=== PATIENT | male | born 1965 | race Two or more races ===

== ENCOUNTER → 2022-09-24 | Outpatient (CLI) | payer OTHER, BC ==
[2022-09-24 09:27] LABS: Basophils # (auto) 0 10 ^3/uL (0-0.2); Basophils % (auto) 0.4 % (0.0-2.0); Eosinophils # (auto) 0.2 10 ^3/uL (0-0.8); Eosinophils % (auto) 2.2 % (0.0-7.0); Hematocrit 43.8 % (41.0-53.0); Hemoglobin 15.1 g/dL (13.5-17.5); Lymphocytes # (auto) 1.9 10 ^3/uL (0.4-5.4); Lymphocytes % (auto) 27.2 % (10.0-50.0); Mean Corpuscular Hgb Conc. 34.4 g/dL (32.0-36.0); Mean Corpuscular Volume 87.1 fL (80.0-100.0); Monocytes # (auto) 0.6 10 ^3/uL (0-1.3); Monocytes % (auto) 8.5 % (0.0-12.0); Neutrophils # (auto) 4.4 10 ^3/uL (1.6-8.6); Neutrophils % (auto) 61.7 % (37.0-80.0); Nucleated Red Blood Cells % 0.1 %; Red Blood Cells 5.03 10^6/uL (4.5-5.90); White Blood Cell 7.1 10^3/uL (4.4-10.8)
[2022-09-24 09:58] LABS: Urine Bacteria NONE SEEN /hpf (None Seen); Urine Blood Negative /uL (Negative); Urine Specific Gravity 1.018 (1.001-1.035); Urine WBC 1 /hpf (0 - 3)
[2022-09-24 10:20] LABS: Potassium 4.1 mmol/L (3.5-5.1)
[2022-09-24 10:30] LABS: Free T4 (Free Thyroxine) 1.06 ng/dL (0.89-1.76)
[2022-09-24 10:32] LABS: Prostate Specific Antigen 1.38 ng/mL (0.0-4.0)
[2022-09-24 10:47] LABS: Albumin 4.4 g/dL (3.4-5.0); BUN/Creatinine Ratio 20.2 (10.0-20.0); Bilirubin, Total 0.8 mg/dL (0.2-1.0); Calcium 9.2 mg/dL (8.5-10.1); Total Protein 7.3 g/dL (6.4-8.2)
== END | disposition home or self-care (01) ==
LOC: LAB 08:51
PROVIDERS: ATTEND Internal Medicine
DX: Z13.1 Encounter for screening for diabetes mellitus (principal); Z29.9 Encounter for prophylactic measures, unspecified; I10 Essential (primary) hypertension; E66.09 Other obesity due to excess calories
CPT/HCPCS: 36415; 80053; 80061; 81001; 83036; 84153; 84403; 84439; 84443; 85025

== ENCOUNTER → 2023-04-05 | Outpatient (CLI) | payer BC | END | disposition home or self-care (01) | LOC: LAB 13:39 | PROVIDERS: ATTEND Urology | DX: E29.1 Testicular hypofunction (principal) | CPT/HCPCS: 36415; 84403 ==

== ENCOUNTER → 2023-05-14 | Outpatient (CLI) | payer BC ==
[2023-05-14 10:53] LABS: Basophils # (auto) 0 10 ^3/uL (0-0.2); Basophils % (auto) 0.3 % (0.0-2.0); Eosinophils # (auto) 0.2 10 ^3/uL (0-0.8); Eosinophils % (auto) 2.1 % (0.0-7.0); Hematocrit 48.2 % (41.0-53.0); Hemoglobin 16.3 g/dL (13.5-17.5); Lymphocytes # (auto) 1.8 10 ^3/uL (0.4-5.4); Lymphocytes % (auto) 20.9 % (10.0-50.0); Mean Corpuscular Hemoglobin 28.3 pg (28.0-32.0); Mean Corpuscular Hgb Conc. 33.8 g/dL (32.0-36.0); Mean Corpuscular Volume 83.7 fL (80.0-100.0); Monocytes # (auto) 0.8 10 ^3/uL (0-1.3); Monocytes % (auto) 9.6 % (0.0-12.0); Neutrophils # (auto) 5.9 10 ^3/uL (1.6-8.6); Neutrophils % (auto) 67.1 % (37.0-80.0); Nucleated Red Blood Cells % 0.6 %; Red Blood Cells 5.76 10^6/uL (4.5-5.90); Red Cell Distribution Width 13.9 % (11.8-14.3); White Blood Cell 8.7 10^3/uL (4.4-10.8)
== END | disposition home or self-care (01) ==
LOC: LAB 10:43
PROVIDERS: ATTEND Urology
DX: E29.1 Testicular hypofunction (principal)
CPT/HCPCS: 36415; 84153; 84403; 85025

== ENCOUNTER → 2023-06-10 | Outpatient (CLI) | payer BC ==
[2023-06-10 08:41] LABS: Basophils # (auto) 0 10 ^3/uL (0-0.2); Basophils % (auto) 0.5 % (0.0-2.0); Eosinophils # (auto) 0.2 10 ^3/uL (0-0.8); Eosinophils % (auto) 2.1 % (0.0-7.0); Hematocrit 48.8 % (41.0-53.0); Hemoglobin 16.5 g/dL (13.5-17.5); Lymphocytes # (auto) 1.6 10 ^3/uL (0.4-5.4); Lymphocytes % (auto) 21.6 % (10.0-50.0); Mean Corpuscular Hgb Conc. 33.8 g/dL (32.0-36.0); Mean Corpuscular Volume 82.8 fL (80.0-100.0); Monocytes # (auto) 0.7 10 ^3/uL (0-1.3); Monocytes % (auto) 9.6 % (0.0-12.0); Neutrophils % (auto) 66.2 % (37.0-80.0); Red Cell Distribution Width 14.1 % (11.8-14.3); White Blood Cell 7.6 10^3/uL (4.4-10.8)
[2023-06-10 09:26] LABS: Alanine Aminotransferase 60 U/L (7-40); Albumin 4.5 g/dL (3.2-4.8); Alkaline Phosphatase 81 U/L (46-116); Anion Gap 5 (5-15); Aspartate Aminotransferase 36 U/L (13-40); BUN/Creatinine Ratio 10.2 (10.0-20.0); Blood Urea Nitrogen 12 mg/dL (9-23); Calcium 9.5 mg/dL (8.5-10.1); Carbon Dioxide 27 mmol/L (20-30); Chloride 107 mmol/L (98-107); Cholesterol 195 mg/dL (< 200); Glucose 123 mg/dL (74-106); HDL Cholesterol 33 mg/dL (40-59); LDL Cholesterol 127 mg/dL (< 100); Potassium 4.2 mmol/L (3.5-5.1); Sodium 139 mmol/L (136-145); Triglycerides 233 mg/dL (< 150)
[2023-06-10 09:35] LABS: Bilirubin, Total 0.7 mg/dL (0.2-1.0)
[2023-06-10 10:33] LABS: Uric Acid 5.6 mg/dL (3.7-9.2)
== END | disposition home or self-care (01) ==
LOC: LAB 08:29
PROVIDERS: ATTEND Nurse Practitioner Gerontology
DX: I10 Essential (primary) hypertension (principal); E78.2 Mixed hyperlipidemia; E66.8 Other obesity; R74.01 Elevation of levels of liver transaminase levels
CPT/HCPCS: 36415; 80053; 80061; 84550; 85025

== ENCOUNTER → 2023-08-06 | Outpatient (CLI) | payer BC ==
[2023-08-06 15:15] LABS: Chloride 106 mmol/L (98-107); Sodium 140 mmol/L (136-145)
[2023-08-06 15:16] LABS: Anion Gap 2 (5-15); Calcium 9.4 mg/dL (8.5-10.1); Carbon Dioxide 32 mmol/L (20-30)
[2023-08-06 15:21] LABS: BUN/Creatinine Ratio 11.8 (10.0-20.0); Blood Urea Nitrogen 15 mg/dL (9-23); Glucose 102 mg/dL (74-106)
== END | disposition home or self-care (01) ==
LOC: LAB 14:42
PROVIDERS: ATTEND Urology
DX: E29.1 Testicular hypofunction (principal)
CPT/HCPCS: 36415; 80048

== ENCOUNTER → 2023-09-16 | Outpatient (CLI) | payer BC ==
[2023-09-16 08:32] LABS: Basophils # (auto) 0 10 ^3/uL (0-0.2); Basophils % (auto) 0.7 % (0.0-2.0); Eosinophils # (auto) 0.2 10 ^3/uL (0-0.8); Eosinophils % (auto) 2.6 % (0.0-7.0); Hematocrit 47.8 % (41.0-53.0); Hemoglobin 16.4 g/dL (13.5-17.5); Lymphocytes # (auto) 1.9 10 ^3/uL (0.4-5.4); Lymphocytes % (auto) 26.1 % (10.0-50.0); Mean Corpuscular Hemoglobin 29.2 pg (28.0-32.0); Mean Corpuscular Hgb Conc. 34.3 g/dL (32.0-36.0); Mean Corpuscular Volume 85.1 fL (80.0-100.0); Monocytes # (auto) 0.6 10 ^3/uL (0-1.3); Monocytes % (auto) 9.1 % (0.0-12.0); Neutrophils # (auto) 4.4 10 ^3/uL (1.6-8.6); Neutrophils % (auto) 61.5 % (37.0-80.0); Nucleated Red Blood Cells % 0.1 %; Red Blood Cells 5.61 10^6/uL (4.5-5.90); Red Cell Distribution Width 14.6 % (11.8-14.3); White Blood Cell 7.2 10^3/uL (4.4-10.8)
[2023-09-16 09:26] LABS: Alanine Aminotransferase 50 U/L (7-40); Albumin 4.5 g/dL (3.2-4.8); Alkaline Phosphatase 86 U/L (46-116); Anion Gap 6 (5-15); Aspartate Aminotransferase 34 U/L (13-40); BUN/Creatinine Ratio 16.2 (10.0-20.0); Blood Urea Nitrogen 19 mg/dL (9-23); Calcium 9.5 mg/dL (8.5-10.1); Carbon Dioxide 27 mmol/L (20-30); Chloride 105 mmol/L (98-107); Glucose 134 mg/dL (74-106); Sodium 138 mmol/L (136-145); Triglycerides 550 mg/dL (< 150)
[2023-09-16 09:27] LABS: Bilirubin, Total 0.5 mg/dL (0.2-1.0); Cholesterol 236 mg/dL (< 200); HDL Cholesterol 35 mg/dL (40-59); Total Protein 7.1 g/dL (5.7-8.2)
[2023-09-16 11:49] LABS: Uric Acid 5.3 mg/dL (3.7-9.2)
[2023-09-16 12:53] LABS: T3 Total 1.53 ng/mL (0.60-1.81)
[2023-09-16 12:54] LABS: Free T3 4.12 pg/mL (2.3-4.2)
[2023-09-16 12:56] LABS: Free T4 (Free Thyroxine) 0.93 ng/dL (0.89-1.76)
== END | disposition home or self-care (01) ==
LOC: LAB 08:15
PROVIDERS: ATTEND Nurse Practitioner Gerontology
DX: Z00.01 Encounter for general adult medical examination with abnormal findings (principal); I10 Essential (primary) hypertension; E78.2 Mixed hyperlipidemia; R73.9 Hyperglycemia, unspecified; R74.01 Elevation of levels of liver transaminase levels
CPT/HCPCS: 36415; 80053; 80061; 83036; 84439; 84443; 84480; 84481; 84550; 85025

== ENCOUNTER → 2023-10-22 | Outpatient (CLI) | payer BC ==
[2023-10-22 11:50] LABS: Chloride 106 mmol/L (98-107); Potassium 3.9 mmol/L (3.5-5.1); Sodium 139 mmol/L (136-145)
[2023-10-22 11:51] LABS: Anion Gap 6 (5-15); Calcium 9.2 mg/dL (8.5-10.1); Carbon Dioxide 27 mmol/L (20-30)
[2023-10-22 11:56] LABS: BUN/Creatinine Ratio 10.4 (10.0-20.0); Blood Urea Nitrogen 11 mg/dL (9-23); Glucose 128 mg/dL (74-106)
== END | disposition home or self-care (01) ==
LOC: LAB 11:19
PROVIDERS: ATTEND Urology
DX: N40.0 Benign prostatic hyperplasia without lower urinary tract symptoms (principal)
CPT/HCPCS: 36415; 80048; 84153; 84403

== ENCOUNTER → 2023-12-13 | Outpatient (CLI) | payer BC ==
[2023-12-13 09:01] LABS: Alanine Aminotransferase 41 U/L (7-40); Albumin 4.4 g/dL (3.2-4.8); Alkaline Phosphatase 77 U/L (46-116); Anion Gap 6 (5-15); Aspartate Aminotransferase 22 U/L (13-40); BUN/Creatinine Ratio 16.4 (10.0-20.0); Bilirubin, Total 0.8 mg/dL (0.2-1.0); Blood Urea Nitrogen 18 mg/dL (9-23); Calcium 9.4 mg/dL (8.7-10.4); Carbon Dioxide 28 mmol/L (20-30); Chloride 105 mmol/L (98-107); Cholesterol 209 mg/dL (< 200); Glucose 125 mg/dL (74-106); HDL Cholesterol 42 mg/dL (40-59); LDL Cholesterol 144 mg/dL (< 100); Potassium 3.9 mmol/L (3.5-5.1); Sodium 139 mmol/L (136-145); Triglycerides 200 mg/dL (< 150)
[2023-12-13 09:02] LABS: Total Protein 6.8 g/dL (5.7-8.2)
== END | disposition home or self-care (01) ==
LOC: LAB 08:04
PROVIDERS: ATTEND Internal Medicine
DX: E78.2 Mixed hyperlipidemia (principal); K76.0 Fatty (change of) liver, not elsewhere classified; R94.4 Abnormal results of kidney function studies; R73.9 Hyperglycemia, unspecified; N52.9 Male erectile dysfunction, unspecified
CPT/HCPCS: 36415; 80053; 80061

== ENCOUNTER 2024-04-02 10:32 | Inpatient (IN) | payer BC ==
[~2024-04-02] VITALS: Ht 182.9 cm; Wt 118.0 kg
--- NOTE | 2024-04-02 10:59 | ED.PDOC ---
Musculoskeletal HPI Comments HPI: Poor Historian. 58-year-old male sent from Dr. Macario Cool's office orthopedic surgeon to be admitted to the hospital for pre up clearance for surgery tomorrow on his left knee it patient had a left knee injury a month ago in [place] from a fall. Pain is worse with flexion of the left knee. The patient is neurovascularly intact in the affected extremity. Pedal pulses palpable. Sensory and motor are present. Patient is able to ambulate independently. VITALS; TEMP; 98.5 F HEART RATE; 87 02 SAT; 96 RR; 18 BP; 142/97 PMH: gerd, gout PSH: collar bone surgery SOCIAL HISTORY: ENDORSES tobacco use, ENDORSES etoh use, DENIES drug use MEDS; aspirin, omeprazole, allopurinol, ibuprofen ALLERGIES; Allergies to Vicodin but not [place] REVIEW OF SYSTEMS: CONSTITUTIONAL: Denies acute: fever, diaphoresis, chills, generalized weakness. HEAD: Denies acute: headache, photophobia Eyes: Denies acute: Double vision, vision loss, eye pain, eye discharge. EARS: Denies acute: tinnitus, hearing loss, ear discharge, ear pain, THROAT: Denies acute: sore throat, swelling, difficulty swallowing , pain with swallowing, change in voice. NECK: Denies acute: neck pain, neck swelling, stiff neck. HEART: Denies acute : chest pain, palpitations, LUNGS: Denies acute: SOB, wheezing, cough, hemoptysis ABDOMEN: Denies acute: abdominal pain, Nausea, Vomiting, diarrhea, melena , hematemesis, hematochezia SKIN: Denies acute: rash, redness, lesions, itchiness. EXTREMITIES: Denies acute: calf pain, numbness, tingling, weakness, Denies acute: Low back pain. Neuro: Denies acute: focal neurological deficit, motor or sensory focal neurological deficit, tremors, seizure like activity, confusion, dizziness, change in mental status, loss of bowel or bladder function, cauda equina like symptoms. : Denies acute: dysuria, hematuria, flank pain, increase in urinary frequency. PSYCH: Denies acute: hallucination, suicidal ideation, homicidal ideation. PHYSICAL EXAM: General: no acute distress, awake and alert. Head: normocephalic, atraumatic. Neck: supple, trachea is midline, no swelling. Throat: Normal phonation. Eyes:, no erythema, no purulent discharge, no proptosis, no icterus. Heart: regular rate, regular rhythm, no significant murmur appreciated. Lungs: no apparent respiratory distress, Able to speak in full sentences. No wheezing, no rhonchi, no crackles. No stridors Clear to auscultation bilaterally. Abdomen: non tender to palpation, non distended, soft, no guarding, no rebound, + bowel sounds. Neuro: Awake, Alert, oriented to name, self, situation, follows commands GCS=15. Speech is normal. Skin: no petechia, no purpura, no cyanosis, non-pale, not jaundice. Lower extremities: --no - Pitting edema no deformity,, no calf TTP. Patient is neurovascularly intact in the affected extremity. Pedal pulses palpable. Motor and sensory are present. Left knee pain and decreased range of motion of the joint due to pain. Mild focal knee swelling. Noted left knee swelling. No erythema Makes eye contact. moves all four extremities. Face: no apparent facial droop. Ambulating in the ED independently. Chief Complaint: Lower Extremity Time Seen by MD: 10:57 Reviewed Notes: Nurses Notes, Medications, Allergies Allergies: Coded Allergies: No Known Drug Allergy (Verified Allergy, Unknown, 04/02/24) Information Source: Patient Mode of Arrival: Ambulatory Brought in by: self Location: Left Past Medical History PAST MEDICAL HISTORY: GERD, Gout Surgical History (Other): collar bone surgery Family History Family History: Reviewed,noncontributory to illness Social History Smoker: Cigarettes Alcohol: Occasionally Drugs: Denies Drug Use Lives In: Home Was a procedure done? Was a procedure done?: No Differential Diagnosis EXT Differential Diagnosis: Cellulitis, CHF, Deep Vein Thrombosis, Compartment Syndrome, Fracture, Sprain, Dislocation, Laceration, Gout, DJD, Contusion, Stra in, Rheumatoid, Septic, Neurovascular injury, Arthritis, Bursitis X-Ray, Labs, Meds, VS Vital Signs Date Time Temp Pulse Resp B/P (MAP) Pulse Ox O2 Delivery O2 Flow Rate FiO2 04/02/24 11:42 76 04/02/24 10:58 98.5 87 18 142/97 (112) 96 Lab Test 04/02/24 11:13 Range/Units White Blood Count 7.6 4.4-10.8 10^3/uL Red Blood Count 5.25 4.5-5.90 10^6/uL Hemoglobin 16.1 13.5-17.5 g/dL Hematocrit 46.2 41.0-53.0 % Mean Corpuscular Volume 88.0 80.0-100.0 fL Mean Corpuscular Hemoglobin 30.7 28.0-32.0 pg Mean Corpuscular Hemoglobin Concent 34.9 32.0-36.0 g/dL Red Cell Distribution Width 14.4 H 11.8-14.3 % Platelet Count 285 140-450 10^3/uL Mean Platelet Volume 8.0 6.9-10.8 fL Neutrophils (%) (Auto) 69.1 37.0-80.0 % Lymphocytes (%) (Auto) 21.0 10.0-50.0 % Monocytes (%) (Auto) 7.3 0.0-12.0 % Eosinophils (%) (Auto) 2.2 0.0-7.0 % Basophils (%) (Auto) 0.4 0.0-2.0 % Neutrophils # (Auto) 5.3 1.6-8.6 10 ^3/uL Lymphocytes # (Auto) 1.6 0.4-5.4 10 ^3/uL Monocytes # (Auto) 0.6 0-1.3 10 ^3/uL Eosinophils # (Auto) 0.2 0-0.8 10 ^3/uL Basophils # (Auto) 0 0-0.2 10 ^3/uL Nucleated Red Blood Cells 0.3 % D-Dimer, Quantitative 1.76 H 0.0-0.49 mg/L FEU Sodium Level 139 136-145 mmol/L Potassium Level 4.2 3.5-5.1 mmol/L Chloride Level 107 98-107 mmol/L Carbon Dioxide Level 25 20-31 mmol/L Anion Gap 7 5-15 Blood Urea Nitrogen 12 9-23 mg/dL Creatinine 1.25 0.700-1.30 mg/dL Glomerular Filtration Rate Calc 67 >90 mL/min BUN/Creatinine Ratio 9.6 L 10.0-20.0 Serum Glucose 188 H 74-106 mg/dL Calcium Level 9.7 8.7-10.4 mg/dL Total Bilirubin 0.4 0.2-1.0 mg/dL Aspartate Amino Transferase (AST) 33 13-40 U/L Alanine Aminotransferase (ALT) 57 H 7-40 U/L Alkaline Phosphatase 81 46-116 U/L Troponin I High Sensitivity 21 </=54 ng/L Total Protein 7.0 5.7-8.2 g/dL Albumin 4.6 3.2-4.8 g/dL [place] [id number] Ph: [phone] DIAGNOSTIC IMAGING Diagnostic Imaging Report : [id number] Signed PATIENT: CALE UNGER ACCT: [id number] UNIT: [id number] : 1965 LOC: ER ROOM / BED: / AGE / SEX: 58 / M ADM STATUS: REG ER SERVICE 1059 ORDERING PHYSICIAN: NEVIN PEARSON DO PROCEDURE(s): CXRP - CHEST PORTABLE REASON: pre op ORDER NUMBER(s): [id number], ACCESSION NUMBER(s): [id number] EXAM: XY CHEST PORTABLE Indication: pain Technique: Single frontal view of the chest was obtained Comparison: None FINDINGS: Lines and Tubes: None Lungs: No focal consolidation. Pleura: No effusion. No pneumothorax. Cardiomediastinal contours: Unremarkable Bones: No acute osseous abnormality. IMPRESSION: No acute cardiopulmonary disease. ATED BY: DEJA DUNNE MD DICTATED DATE/TIME: 04/02/24 1145 SIGNED BY: DEJA DUNNE MD SIGNED DATE/TIME: 04/02/24 1145 CC: [place] [id number] Ph: [phone] DIAGNOSTIC IMAGING Diagnostic Imaging Report : [id number] Signed PATIENT: CALE UNGER ACCT: [id number] UNIT: [id number] : 1965 LOC: ER ROOM / BED: / AGE / SEX: 58 / M ADM STATUS: REG ER SERVICE 1141 ORDERING PHYSICIAN: NEVIN PEARSON DO PROCEDURE(s): LKNE3 - L KNEE 3V XRAY REASON: pain swelling injury ORDER NUMBER(s): [id number], ACCESSION NUMBER(s): [id number] CLINICAL INFORMATION: 58 years old, Male; pain swelling injury. TECHNIQUE: 3 views of the left knee were obtained. COMPARISON: None FINDINGS: No acute fracture or dislocation. Moderate joint space narrowing of the medial compartment and qyey-xs-aqdoygna joint space narrowing in the lateral and patellofemoral compartments. No focal soft tissue swelling. Small joint effusion. IMPRESSION: 1. No evidence of acute bony abnormality. 2. Nonacute findings as detailed above. ATED BY: ROMAN ARRIAGA DO DICTATED DATE/TIME: 04/02/241209 SIGNED BY: ROMAN ARRIAGA DO SIGNED DATE/TIME: 04/02/241209 CC: Time of 1ST Reevaluation: 15:38 Reevaluation 1ST: Unchanged Patient Education/Counseling: Diagnosis, Treatment Family Education/Counseling: No Family Present Comments Patient presented with the above HPI.---left knee pain---workup was initiated. patient was found with the above mentioned diagnosis. Patient denies any acute pain. Patient is here for preop clearance for surgery tomorrow. Patient ED course and VS have been stabilized. Patient has been reassessed in the ED and remained in a stable condition. Pertinent incidental findings were discussed with the patient and/or family. Patient/family voices understanding and is agreeable with plan. Patient has been observed in the ED adequate length of time to insure improvem ent/stability. patient was admitted to the medicine team for further evaluation and treatment of their presentation. Case discussed with orthopedic surgeon Dr. Mcguire on the phone who also came to the ER to evaluate the patient. Patient is awaiting surgery tomorrow. All the reports of any imaging studies that were ordered by myself were reviewed by myself. Departure 1 Departure Time of Disposition: 11:04 Impression: Primary Impression: Knee injury Additional Impression: Elevated troponin Disposition: 09 ADMITTED INPATIENT Admit to: Tele Condition: Guarded Discharged With: Self Critical Care Note Critical Care Time?: No I personally scribed for NEVIN PEARSON DO ([email or web address]) on 04/02/24 at 10:59. Electronically submitted by Bren Izaguirre (MARIA L). I personally scribed for NEVIN PEARSON DO ([facility]) on 04/02/24 at 11:10. Electronically submitted by Bren Izaguirre ([facility]). I personally scribed for NEVIN PEARSON DO ([facility]) on 04/02/24 at 11:59. Electronically submitted by [facility]irre ([facility] I personally scribed for NEVIN PEARSON DO ([facility]) on 04/02/24 at 12:25. Electronically submitted by Bren [facility]aguirre ([facility] NEVIN PEARSON DO Apr 02, 2024 10:59
[2024-04-02 11:40] LABS: Basophils # (auto) 0 10 ^3/uL (0-0.2); Basophils % (auto) 0.4 % (0.0-2.0); Eosinophils # (auto) 0.2 10 ^3/uL (0-0.8); Eosinophils % (auto) 2.2 % (0.0-7.0); Hematocrit 46.2 % (41.0-53.0); Hemoglobin 16.1 g/dL (13.5-17.5); Lymphocytes # (auto) 1.6 10 ^3/uL (0.4-5.4); Mean Corpuscular Hemoglobin 30.7 pg (28.0-32.0); Mean Corpuscular Hgb Conc. 34.9 g/dL (32.0-36.0); Monocytes # (auto) 0.6 10 ^3/uL (0-1.3); Monocytes % (auto) 7.3 % (0.0-12.0); Neutrophils # (auto) 5.3 10 ^3/uL (1.6-8.6); Neutrophils % (auto) 69.1 % (37.0-80.0); Nucleated Red Blood Cells % 0.3 %; Platelet Count (auto) 285 10^3/uL (140-450); Red Blood Cells 5.25 10^6/uL (4.5-5.90); Red Cell Distribution Width 14.4 % (11.8-14.3); White Blood Cell 7.6 10^3/uL (4.4-10.8)
--- NOTE | 2024-04-02 11:47 | DVH ---
EXAM: XY CHEST PORTABLE Indication: pain Technique: Single frontal view of the chest was obtained Comparison: None FINDINGS: Lines and Tubes: None Lungs: No focal consolidation. Pleura: No effusion. No pneumothorax. Cardiomediastinal contours: Unremarkable Bones: No acute osseous abnormality. IMPRESSION: No acute cardiopulmonary disease.
[2024-04-02 12:01] LABS: Alanine Aminotransferase 57 U/L (7-40); Albumin 4.6 g/dL (3.2-4.8); Alkaline Phosphatase 81 U/L (46-116); Anion Gap 7 (5-15); Aspartate Aminotransferase 33 U/L (13-40); BUN/Creatinine Ratio 9.6 (10.0-20.0); Blood Urea Nitrogen 12 mg/dL (9-23); Calcium 9.7 mg/dL (8.7-10.4); Carbon Dioxide 25 mmol/L (20-31); Chloride 107 mmol/L (98-107); Glucose 188 mg/dL (74-106); Potassium 4.2 mmol/L (3.5-5.1); Sodium 139 mmol/L (136-145)
[2024-04-02 12:02] LABS: Bilirubin, Total 0.4 mg/dL (0.2-1.0)
--- NOTE | 2024-04-02 12:12 | DVH ---
CLINICAL INFORMATION: 58 years old, Male; pain swelling injury. TECHNIQUE: 3 views of the left knee were obtained. COMPARISON: None FINDINGS: No acute fracture or dislocation. Moderate joint space narrowing of the medial compartment and aycz-tr-cemsnlcl joint space narrowing in the lateral and patellofemoral compartments. No focal s oft tissue swelling. Small joint effusion. IMPRESSION: 1. No evidence of acute bony abnormality. 2. Nonacute findings as detailed above.
--- NOTE | 2024-04-02 14:00 | DVH ---
Bilateral lower extremity venous duplex Clinical History: abnormal d dimer Comparison: None Technique: Duplex Doppler evaluation of the deep venous systems of both lower extremities from the common femora l veins to the popliteal veins including color Doppler and spectral/pulsed waveform analysis was perf ormed. Findings: RIGHT SIDE: The common femoral vein demonstrates appropriate compressibility and waveform variability. There is compressibility/patency of the great saphenous vein at the proximal thigh. The femoral vein demonstrates appropriate compressibility and waveform variability. The deep femoral vein demonstrates appropriate compressibility and waveform variability. The popliteal vein demonstrates appropriate compressibility and waveform variability. There is normal compressibility at the tibioperoneal trunk. LEFT SIDE: The common femoral vein demonstrates appropriate compressibility and waveform variability. There is compressibility/patency of the great saphenous vein at the proximal thigh. The femoral vein demonstrates appropriate compressibility and waveform variability. The deep femoral vein demonstrates appropriate compressibility and waveform variability. The popliteal vein demonstrates appropriate compressibility and waveform variability. There is normal compressibility at the tibioperoneal trunk. Impression: 1. No right or left femoropopliteal venous thrombosis. HS:Y
[2024-04-02] MEDS ORDERED: ACETAMINOPHEN 325 MG TAB PO PRN ×2 (16:45)
[2024-04-02] MEDS ORDERED: DEXTROSE (50%) 50ML SYRG IV PRN (16:45)
[2024-04-02] MEDS ORDERED: ONDANSETRON HCL 4 MG/2 ML VIAL IV PRN (16:45)
[2024-04-02] MEDS ORDERED: ALLO300T2 PO (16:47)
[2024-04-02] MEDS: InsuLIN REG 1unit/0.01ml Soln (100units/ml) SC SCH (17:00)
--- NOTE | 2024-04-02 17:08 | DVHHP2 ---
History of Present Illness Reason for Visit: Left knee pain/preop History of Present Illness 58-year-old male sent from Dr. Siu's office orthopedic surgeon to be admitted to the hospital for surgery tomorrow his left knee. Patient had left knee injury a month ago in [place] after tripping off a curb. Pain is worse with flexion of left knee. Patient is neurovascularly intact in the affected extremity, pedal pulses palpable patient is able to ambulate independently. Patient denies chest pain, headache, dizziness, diaphoresis, shortness of breath, abdominal pain, no nausea, vomiting, fever, or chills endorsed by the patient. Patient was admitted for further evaluation medical management. Past Medical History GERD, gout Past Surgical History Collar bone surgery Family History Reviewed noncontributory to the management of this case Smoke: <1 pack per day (Cigars once a week) ALCOHOL: occassional Drugs: None Lives: with Family Review of Systems Constitutional: No: Fever, Chills, Sweats, Weakness, Malaise, Other Eyes: No: Pain, Vision change, Conjunctivae inflammation, Eyelid inflammation, Other, Redness ENT: No: Ear pain, Ear discharge, Nose pain, Nose discharge, Nose congestion, Mouth pain, Mouth swelling, Throat pain, Throat swelling, Other Respiratory: No: Cough, Dry, Shortness of breath, SOB with excertion, Wheezing, Hemoptysis, Pleuritic Pain, Sputum, Wheezing, Other Cardiovascular: No: Chest Pain, Palpitations, Orthopnea, Paroxysmal Noc. Dyspnea, Edema, Lt Headedness, Other Gastrointestinal: No: Nausea, Vomiting, Abdominal Pain, Diarrhea, Constipation, Melena, Hematochezia, Other Genitourinary: No Dysuria, No Frequency, No Incontinence, No Hematuria, No Retention, No Other Musculoskeletal: leg pain (Left knee pain); No: other, neck pain, shoulder pain, arm pain, back pain, hand pain, foot pain Skin: No: Rash, Lesions, Jaundice, Bruising, Other Neurological: No: Weakness, Numbness, Incoordination, Change in speech, Confusion, Seizures, Other Allergies: Coded Allergies: Acetaminophen (Verified Allergy, Mild, Rash, 04/02/24) Hydrocodone (Verified Allergy, Mild, Rash, 04/02/24) No Known Drug Allergy (Verified Allergy, Unknown, 04/02/24) Medications Current Medications Medications Dose Ordered Sig/Judah Route Start Time Stop Time Status Last Admin Dose Admin Ondansetron HCl 4 mg Q4HP PRN IV 04/02/24 16:45 Diagnostic Test (Pha) 1 strip ACHS 04/02/24 17:00 Insulin Human Regular ACHS SC 04/02/24 17:00 Dextrose 50 ml UD PRN IV 04/02/24 16:45 Ketorolac Tromethamine 30 mg Q6HPRN PRN IV 04/02/24 16:45 04/07/24 16:44 Acetaminophen 650 mg Q4HP PRN PO 04/02/24 16:45 Hold Allopurinol 300 mg DAILY PO 04/03/24 10:00 UNV Pantoprazole Sodium 40 mg DAILY@0600 PO 04/03/24 06:00 UNV Exam Vital Signs Vital Signs Date Time Temp Pulse Resp B/P (MAP) Pulse Ox O2 Delivery O2 Flow Rate FiO2 04/02/24 11:42 76 04/02/24 10:58 98.5 18 142/97 (112) 96 General Appearance: Alert, Oriented X3, Cooperative, No acute distress HEENT: Atraumatic, PERRLA, Mucous membr. moist/pink Respiratory: Clear to auscultation, Normal air movement Cardiovascular: Regular rate, Normal S1, Normal S2, No murmurs Abdominal: Normal bowel sounds, Soft, No tenderness, No hepatospenomegaly Extremities: No clubbing, No cyanosis, No edema, Normal pulses, No tenderness/swelling Skin: No rashes, No breakdown, No significant lesion Neuro: Normal gait, Normal speech, Strength at 5/5 X4 ext, Normal tone, Sensation intact, Cranial nerves 3-12 NL, Reflexes 2+ Psych/Mental Status: Mental status NL, Mood NL Labs/Xrays Labs, imaging and ED notes reviewed Labs Test 04/02/24 11:13 Range/Units White Blood Count 7.6 4.4-10.8 10^3/uL Red Blood Count 5.25 4.5-5.90 10^6/uL Hemoglobin 16.1 13.5-17.5 g/dL Hematocrit 46.2 41.0-53.0 % Mean Corpuscular Volume 88.0 80.0-100.0 fL Mean Corpuscular Hemoglobin 30.7 28.0-32.0 pg Mean Corpuscular Hemoglobin Concent 34.9 32.0-36.0 g/dL Red Cell Distribution Width 14.4 H 11.8-14.3 % Platelet Count 285 140-450 10^3/uL Mean Platelet Volume 8.0 6.9-10.8 fL Neutrophils (%) (Auto) 69.1 37.0-80.0 % Lymphocytes (%) (Auto) 21.0 10.0-50.0 % Monocytes (%) (Auto) 7.3 0.0-12.0 % Eosinophils (%) (Auto) 2.2 0.0-7.0 % Basophils (%) (Auto) 0.4 0.0-2.0 % Neutrophils # (Auto) 5.3 1.6-8.6 10 ^3/uL Lymphocytes # (Auto) 1.6 0.4-5.4 10 ^3/uL Monocytes # (Auto) 0.6 0-1.3 10 ^3/uL Eosinophils # (Auto) 0.2 0-0.8 10 ^3/uL Basophils # (Auto) 0 0-0.2 10 ^3/uL Nucleated Red Blood Cells 0.3 % D-Dimer, Quantitative 1.76 H 0.0-0.49 mg/L FEU Sodium Level 139 136-145 mmol/L Potassium Level 4.2 3.5-5.1 mmol/L Chloride Level 107 98-107 mmol/L Carbon Dioxide Level 25 20-31 mmol/L Anion Gap 7 5-15 Blood Urea Nitrogen 12 9-23 mg/dL Creatinine 1.25 0.700-1.30 mg/dL Glomerular Filtration Rate Calc 67 >90 mL/min BUN/Creatinine Ratio 9.6 L 10.0-20.0 Serum Glucose 188 H 74-106 mg/dL Calcium Level 9.7 8.7-10.4 mg/dL Total Bilirubin 0.4 0.2-1.0 mg/dL Aspartate Amino Transferase (AST) 33 13-40 U/L Alanine Aminotransferase (ALT) 57 H 7-40 U/L Alkaline Phosphatase 81 46-116 U/L Troponin I High Sensitivity 21 </=54 ng/L Total Protein 7.0 5.7-8.2 g/dL Albumin 4.6 3.2-4.8 g/dL Assessment/Plan Assessment/Plan Left knee pain, secondary to osteoarthritis Admit to medical/surgical Patient is stable Imaging done Per ER notes patient is pending possible left knee surgery ER spoke with Dr. Siu orthopedic surgeon History of gout Continue home Allopurinol History of GERD Continue home Protonix Hyperglycemia HGBA1c pending Accu-Cheks a.c. HS Mild insulin sliding scale FEN/PPX GI prophylaxis-Protonix VTE prophylaxis not indicated Regular diet- NPO after midnight to prepare for surgery Plan discussed with: Patient My Orders Orders - DANA FIELDS Procedure Category Date Status Time Admit ADMIT 04/02/24 Transmitted 16:33 Code Status CODE 04/02/24 Transmitted 16:33 Vital Signs ANDRES 04/02/24 In Process 16:33 Review Orders With ANDRES 04/02/24 In Process Adm. 16:33 Up Ad Morena ANDRES 04/02/24 In Process 16:33 Regular Diet DIET 04/02/24 Transmitted Dinner Notify Md Of Changes ANDRES 04/02/24 In Process From Base 16:33 Advance Directive ANDRES 04/02/24 In Process 16:33 Basic Metabolic Panel LAB 04/03/24 Verified 04:00 Complete Blood Count LAB 04/03/24 Verified 04:00 Patient Condition ORDERS 04/02/24 Transmitted 16:33 Allergies ANDRES 04/02/24 In Process 16:33 Ondansetron Hcl PHA 04/02/24 In Process (Zofran) 16:45 Hemoglobin A1c LAB 04/02/24 In Process 16:33 Glucose Blood PHA 04/02/24 In Process (Accu-Chek Comfort 17:00 Insulin R (Human) PHA 04/02/24 In Process (Insulin R) 17:00 Dextrose 50% Syringe PHA 04/02/24 In Process 16:45 Ketorolac Injection PHA 04/02/24 In Process (Toradol Injection) 16:45 Acetaminophen Tablet PHA 04/02/24 In Process (Tylenol Tablet) 16:45 Allopurinol Tablet PHA 04/03/24 Logged (Zyloprim Tablet) 10:00 Pantoprazole Tablet PHA 04/03/24 Logged (Protonix Tablet) 06:00 Date of Service: Apr 02, 2024 Billing Provider: DANA FIELDS Common Visit Codes: [id number] INP/OBS CARE (HIGH) DANA FIELDS Apr 02, 2024 17:08
[2024-04-02] MEDS: ACCU-CHEK COMFORT CURVE STRIP VI SCH (17:28)
--- NOTE | 2024-04-02 19:05 | ECG ---
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
[2024-04-03] VITALS (8 sets, daily range): BP systolic 132–153; BP diastolic 65–96; PULSE 48–99; RESP 16–20; TEMP 98–98.6; O2SAT 90–96
[2024-04-03 04:40] LABS: Basophils # (auto) 0 10 ^3/uL (0-0.2); Basophils % (auto) 0.4 % (0.0-2.0); Eosinophils # (auto) 0.3 10 ^3/uL (0-0.8); Eosinophils % (auto) 2.8 % (0.0-7.0); Hematocrit 47.1 % (41.0-53.0); Hemoglobin 16.1 g/dL (13.5-17.5); Lymphocytes # (auto) 2.2 10 ^3/uL (0.4-5.4); Lymphocytes % (auto) 23.8 % (10.0-50.0); Mean Corpuscular Hemoglobin 30.1 pg (28.0-32.0); Mean Corpuscular Hgb Conc. 34.1 g/dL (32.0-36.0); Mean Corpuscular Volume 88.1 fL (80.0-100.0); Monocytes # (auto) 0.7 10 ^3/uL (0-1.3); Monocytes % (auto) 7.1 % (0.0-12.0); Neutrophils # (auto) 6.2 10 ^3/uL (1.6-8.6); Neutrophils % (auto) 65.9 % (37.0-80.0); Nucleated Red Blood Cells % 0.1 %; Platelet Count (auto) 292 10^3/uL (140-450); Red Blood Cells 5.35 10^6/uL (4.5-5.90); Red Cell Distribution Width 14.4 % (11.8-14.3); White Blood Cell 9.4 10^3/uL (4.4-10.8)
[2024-04-03 04:54] LABS: Chloride 107 mmol/L (98-107); Sodium 139 mmol/L (136-145)
[2024-04-03 04:55] LABS: Anion Gap 8 (5-15); Calcium 9.6 mg/dL (8.7-10.4); Carbon Dioxide 24 mmol/L (20-31)
[2024-04-03 05:00] LABS: BUN/Creatinine Ratio 13.3 (10.0-20.0); Blood Urea Nitrogen 14 mg/dL (9-23); Glucose 115 mg/dL (74-106)
[2024-04-03] MEDS: PANTOPRAZOLE 40 MG TAB PO SCH (06:05)
[2024-04-03] MEDS: ALLOPURINOL 100 MG TAB PO SCH (09:19)
[2024-04-03] MEDS ORDERED: fentaNYL CITRATE 100 MCG/2 ML VL ONE ×2 (11:01→12:07)
[2024-04-03] MEDS ORDERED: PROPOFOL 10 MG/ML 20 ML IV ONE (11:01)
[2024-04-03] MEDS: ceFAZolin 1GM/50ML 50 ML IV ONE (11:37)
--- NOTE | 2024-04-03 11:42 | DVHHP2 ---
History Allergies: Coded Allergies: Acetaminophen (Verified Allergy, Mild, Rash, 04/02/24) Hydrocodone (Verified Allergy, Mild, Rash, 04/02/24) No Known Drug Allergy (Verified Allergy, Unknown, 04/02/24) Chief Complaint: Left quadriceps tendon rupture, inability to extend knee Present Illness(Onset/Duration Fall 4 weeks ago with pain anterior suprapatellar area, presentted to [facility] ER, referred to ortho clinic Pt presented yesterday, 4 wks s/p injury with MRI left knee showing complete rupture of quadriceps tendon, and my reading showed some maceration and 5 cm retraction pt admitted to hospital from clinic for surgery today Past Surgical History ORIF left clavicle 2006 without complication Medications metopralol, gout meds, ASA, testosterone, meds for IBS Physical Exam Skin intact Heart RRR neg mrg Abdomen soft ND NT Extremities Left LE, 30 deg extensiuon lag, palpable defect distal quadriceps, NVI Vital Signs Vital Signs Date Time Temp Pulse Resp B/P (MAP) Pulse Ox O2 Delivery O2 Flow Rate FiO2 04/03/24 10:34 98.3 54 18 153/75 (101) 95 98.3 04/02/24 23:12 Room Air* 0 21 Impressions/Description Left quadriceps tendon tear, 4wks ago Plan 1) pre op admit, clear internal med 2) surgery for repair of left quadriceps tendon. Risks and benefits of surgery explained to include ; , ME, CVA, infection , recurrent tear, pain, poor ROM Pt understood risks and benefits and signed consent with full understanding TYREL MICHAEL MD Apr 03, 2024 11:42
[2024-04-03] MEDS ORDERED: ONDANSETRON HCL 4 MG/2 ML VIAL ONE (11:45)
[2024-04-03] MEDS ORDERED: DexAMETHasone SOD PHOS 10MG/1ML VIAL INJ ONE (11:45)
[2024-04-03] MEDS ORDERED: MEPERIDINE HCL (25 MG/ML) 1ML VIAL ONE (11:47)
[2024-04-03] MEDS: ROPIVACAINE 0.5% (5MG/ML) 20ML AMPULE IJ ONE (11:59)
[2024-04-03] MEDS ORDERED: SODIUM CHLORIDE LOCK 10 ML ONE (12:20)
[2024-04-03] MEDS ORDERED: MEPERIDINE HCL (25 MG/ML) 1ML VIAL IV PRN (13:15)
[2024-04-03] MEDS: ONDANSETRON HCL 4 MG/2 ML VIAL IV ONE (13:15)
[2024-04-03] MEDS ORDERED: ACETAMINOPHEN IV 1000 MG/100ML (10MG/ML) IV PRN (13:15)
--- NOTE | 2024-04-03 13:28 | DVHOP2 ---
Operative Report - 2 Report Details Date: 04/03/24 Preop Diagnosis: Left quadriceps tendon tear Postop Diagnosis: same Surgeon: Tyrel Michael MD Front Elevator Operator: none Anesthesiologist: Dr Rios Anesthesia: General Implant: none Consent: The patient was informed of the risks and benefits of the procedure. These include but are not limited to complications of anesthesia, postoperative infection, incomplete relief of symptoms, recurrence of symptoms, damage to blood vessels, nerves and tendons, deep venous thrombosis, pulmonary embolism and possible need for repeat surgery in the future. Complications: none Estimated Blood Loss: 10 cc Fluids: 500 cc crystalloid Findings: above Indications for Surgery: full thickness tear of quadriceps tendon Name of Procedure Performed Repair of left quadriceps tendon tear Procedure Details Procedure Details: Patient brought in the operating room and given Ancef 1 g IV piggyback preoperatively sterile prep and drape left leg a time-out performed confirmation left side correct side repair of left quadriceps tendon tear correct procedure after review of the operative consent history and physical my initials on left thigh no exsanguination or tourniquet during the case longitudinal incision made from inferior pole of patella proximally to mid thigh sharp dissection through skin down to de sutures and suturing to tissue that was still present in the p roximally attached with the proximal pole of the patella ep fascia deep fascia then divided longitudinally exposing the quadriceps tendon tear quadriceps tendon was then repaired using Mersilene tape of specifically a 4 mm Mersilene tape using locking Jaz stitch no drill holes necessary and patella as there was tendon tissue still attached to the superior pole patella for repair after repair using 4 separate worsening tape sutures of the knee the knee was brought through on flexion to 3045 showing no gaping of the tear site fascia was then repaired over the deep tendon a using 0 Vicryl suture then subcutaneous 2-0 Vicryl suture then skin kate fluffs ABD Jose Martin wrap a knee immobilizer no drainage specimens complications. Specimen: none Condition Stable Disposition Still a Patient TYREL MICHAEL MD Apr 03, 2024 13:28
[2024-04-03] MEDS ORDERED: D5W/SOD CHL 0.45%/KCL 20MEQ 1,000 ML IV SCH (13:30)
[2024-04-03] MEDS: HYDROmorphone HCL 2 MG/ML VL/or syr ONE (13:41)
[2024-04-03] MEDS: HYDROmorphone HCL 2 MG/ML VL/or syr IV PRN (13:45)
[2024-04-03] MEDS: ceFAZolin 1GM/50ML 50 ML IV SCH (14:00)
--- NOTE | 2024-04-03 14:34 | DVHPN2 ---
Subjective POD1 Left Quad Repair Changes from previous H/P or p: No Changes Eyes: No Pain, No Vision change, No Conjunctivae inflammation, No Eyelid inflammation, No Other, No Redness ENT: No Ear pain, No Ear discharge, No Nose pain, No Nose discharge, No Nose congestion, No Mouth pain, No Mouth swelling, No Throat pain, No Throat swelling, No Other Cardiovascular: No Chest Pain, No Palpitations, No Orthopnea, No Paroxysmal Noc. Dyspnea, No Edema, No Lt Headedness, No Other Respiratory: No Cough, No Dry, No Shortness of breath, No SOB with excertion, No Wheezing, No Hemoptysis, No Pleuritic Pain, No Sputum, No Other Gastrointestinal: No Nausea, No Vomiting, No Abdominal Pain, No Diarrhea, No Constipation, No Melena, No Hematochezia, No Other Genitourinary: No Dysuria, No Frequency, No Incontinence, No Hematuria, No Retention, No Other Musculoskeletal: No other, No neck pain, No shoulder pain, No arm pain, No back pain, No hand pain; leg pain (Left knee pain); No foot pain Skin: No Rash, No Lesions, No Jaundice, No Bruising, No Other Objective Vitals Vital Signs Date Time Temp Pulse Resp B/P (MAP) Pulse Ox O2 Delivery O2 Flow Rate FiO2 04/03/24 10:34 98.3 54 18 153/75 (101) 95 98.3 04/02/24 23:12 Room Air* 0 21 Exam Gen: in bed NAD Cvs: N S1/S2, RRR Resp: BLAE Abd: Soft, NT, BS+ Clinical Team Lead: AAO x 4 Ext: Left Knee Dressing Medications Current Medications Medications Dose Ordered Sig/Judah Route Start Time Stop Time Status Last Admin Dose Admin Ondansetron HCl 4 mg Q4HP PRN IV 04/02/24 16:45 Diagnostic Test (Pha) 1 strip ACHS 04/02/24 17:00 04/03/24 06:06 1 STRIP Insulin Human Regular ACHS SC 04/02/24 17:00 Dextrose 50 ml UD PRN IV 04/02/24 16:45 Ketorolac Tromethamine 30 mg Q6HPRN PRN IV 04/02/24 16:45 04/07/24 16:44 Acetaminophen 650 mg Q4HP PRN PO 04/02/24 16:45 Hold Allopurinol 300 mg DAILY PO 04/03/24 10:00 04/03/24 09:19 300 MG Pantoprazole Sodium 40 mg DAILY@0600 PO 04/03/24 06:00 04/03/24 06:05 40 MG Acetaminophen 1,000 mg [id number] PRN IV 04/03/24 13:15 04/03/24 13:16 UNV Hydromorphone HCl 0.5 mg Q10M PRN IV 04/03/24 13:15 04/03/24 13:56 UNV Potassium Chloride/Dextrose/ Sod Cl 1,000 ml @ 150 mls/hr Q6H40M IV 04/03/24 13:30 Cefazolin Sodium 50 ml @ 50 mls/hr Q8HR IV 04/03/24 14:00 04/03/24 22:59 Laboratory Results Laboratory Tests 04/03/24 04:30 Chemistry Test 04/03/24 04:30 Calcium Level 9.6 mg/dL (8.7-10.4) Assessment/Plan Assessment/Plan # Left Quad Repair by Dr. Flood # GERD # DVT Prop- Lovenox Plan discussed with: Patient Date of Service: Apr 03, 2024 Billing Provider: MONTSE SORENSEN MD Common Visit Codes: [id number] INP/OBS CARE(MOD) MONTSE SORENSEN MD Apr 03, 2024 14:34
[2024-04-03] MEDS: KETOROLAC TROMETH 30 MG/ML 1ML VIAL IV PRN (20:19)
[2024-04-04 01:00] VITALS: BP 115/59; PULSE 91; RESP 18; TEMP 98.2; O2SAT 90
[2024-04-04 05:00] VITALS: BP 132/73; PULSE 94; RESP 18; TEMP 98.2; O2SAT 95
[2024-04-04 05:14] LABS: Hematocrit 42.9 % (41.0-53.0)
[2024-04-04 08:00] VITALS: PULSE 99; RESP 17; O2SAT 90
[2024-04-04 09:00] VITALS: BP_SYST 132; BP_SYST 138; BP_DIAS 72; BP_DIAS 78; PULSE 73; PULSE 84; RESP 20; RESP 94; TEMP 97.9; TEMP 98.3; O2SAT 20; O2SAT 95
[2024-04-04] MEDS: ENOXAPARIN SOD 40 MG/0.4 ML SYRINGE SC SCH (10:30)
[2024-04-04 13:00] VITALS: BP 143/81; PULSE 73; RESP 20; TEMP 98.8; O2SAT 93
[2024-04-04] MEDS ORDERED: CEPH250C PO (15:09)
[2024-04-04] MEDS ORDERED: HYDR-4798 PO (15:09)
--- NOTE | 2024-04-04 15:14 | DVHDS2 ---
Discharge Summary Date of Admission Apr 02, 2024 at 16:33 Date of Discharge: Apr 04, 2024 Admitting Diagnosis Left quadriceps tendon tear Labs/Diagnostic Data: Laboratory Results Test 04/04/24 06:05 04/04/24 04:19 04/03/24 04:30 04/02/24 11:13 POC Glucose 137 mg/dl (70-106) Hemoglobin 15.0 g/dL (13.5-17.5) Hematocrit 42.9 % (41.0-53.0) White Blood Count 9.4 10^3/uL (4.4-10.8) Red Blood Count 5.35 10^6/uL (4.5-5.90) Mean Corpuscular Volume 88.1 fL (80.0-100.0) Mean Corpuscular Hemoglobin 30.1 pg (28.0-32.0) Mean Corpuscular Hemoglobin Concent 34.1 g/dL (32.0-36.0) Red Cell Distribution Width 14.4 % (11.8-14.3) Platelet Count 292 10^3/uL (140-450) Mean Platelet Volume 7.8 fL (6.9-10.8) Neutrophils (%) (Auto) 65.9 % (37.0-80.0) Lymphocytes (%) (Auto) 23.8 % (10.0-50.0) Monocytes (%) (Auto) 7.1 % (0.0-12.0) Eosinophils (%) (Auto) 2.8 % (0.0-7.0) Basophils (%) (Auto) 0.4 % (0.0-2.0) Neutrophils # (Auto) 6.2 10 ^3/uL (1.6-8.6) Lymphocytes # (Auto) 2.2 10 ^3/uL (0.4-5.4) Monocytes # (Auto) 0.7 10 ^3/uL (0-1.3) Eosinophils # (Auto) 0.3 10 ^3/uL (0-0.8) Basophils # (Auto) 0 10 ^3/uL (0-0.2) Nucleated Red Blood Cells 0.1 % Sodium Level 139 mmol/L (136-145) Potassium Level 4.0 mmol/L (3.5-5.1) Chloride Level 107 mmol/L (98-107) Carbon Dioxide Level 24 mmol/L (20-31) Anion Gap 8 (5-15) Blood Urea Nitrogen 14 mg/dL (9-23) Creatinine 1.05 mg/dL (0.700-1.30) Glomerular Filtration Rate Calc 83 mL/min (>90) BUN/Creatinine Ratio 13.3 (10.0-20.0) Serum Glucose 115 mg/dL (74-106) Calcium Level 9.6 mg/dL (8.7-10.4) D-Dimer, Quantitative 1.76 mg/L FEU (0.0-0.49) Hemoglobin A1c 5.6 % A1C (<5.7) Total Bilirubin 0.4 mg/dL (0.2-1.0) Aspartate Amino Transferase (AST) 33 U/L (13-40) Alanine Aminotransferase (ALT) 57 U/L (7-40) Alkaline Phosphatase 81 U/L (46-116) Troponin I High Sensitivity 21 ng/L (</=54) Total Protein 7.0 g/dL (5.7-8.2) Albumin 4.6 g/dL (3.2-4.8) Other Laboratory Tests 04/04/24 04:19 04/03/24 04:30 Brief Hx & Hospital Course: Fall 4 weeks ago with pain anterior suprapatellar area, presented to [facility] ER, referred to ortho clinic. Pt presented yesterday, 4 wks s/p injury with MRI left knee showing complete rupture of quadriceps tendon, and my reading showed some maceration and 5 cm retraction Patient was admitted to hospital from clinic for surgery. See operative report below. Patient will be discharged home today, tolerated surgery well. I had a detailed discussion with the patient and spouse at bedside. I answered the patients questions to the best of my ability. I reitrated to the patient and spouse to ask all of their questions prior to discharge. Patients spouse said "I have a billion questions, but Ill just save them" Patient was also provided Dr. Grey cell phone. Operations or Procedures Operative Report - 2 Report Details Date: 04/03/24 Preop Diagnosis: Left quadriceps tendon tear Postop Diagnosis: same Surgeon: Fady Flood MD Farmworker Dairy: none Anesthesiologist: Dr Rios Anesthesia: General Implant: none Consent: The patient was informed of the risks and benefits of the procedure. These include but are not limited to complications of anesthesia, postoperative infection, incomplete relief of symptoms, recurrence of symptoms, damage to blood vessels, nerves and tendons, deep venous thrombosis, pulmonary embolism and possible need for repeat surgery in the future. Complications: none Estimated Blood Loss: 10 cc Fluids: 500 cc crystalloid Findings: above Indications for Surgery: full thickness tear of quadriceps tendon Name of Procedure Performed Repair of left quadriceps tendon tear Procedure Details Procedure Details: Patient brought in the operating room and given Ancef 1 g IV piggyback preoperatively sterile prep and drape left leg a time-out performed confirmation left side correct side repair of left quadriceps tendon tear correct procedure after review of the operative consent history and physical my initials on left thigh no exsanguination or tourniquet during the case longitudinal incision made from inferior pole of patella proximally to mid thigh sharp dissection through skin down to de sutures and suturing to tissue that was still present in the proximally attached with the proximal pole of the patella ep fascia deep fascia then divided longitudinally exposing the quadriceps tendon tear quadriceps tendon was then repaired using Mersilene tape of specifically a 4 mm Mersilene tape using locking Central stitch no drill holes necessary and patella as there was tendon tissue still attached to the superior pole patella for repair after repair using 4 separate worsening tape sutures of the knee the knee was brought through on flexion to 3045 showing no gaping of the tear site fascia was then repaired over the deep tendon a using 0 Vicryl suture then subcutaneous 2-0 Vicryl suture then skin kate fluffs ABD Jose Martin wrap a knee immobilizer no drainage specimens complications. Specimen: none Condition Stable Condition at Discharge: Stable Final Diagnosis/Problems List # Left Quad Repair by Dr. Flood Discharge Disposition: Home Discharge Instruct/Medications Diet: Regular Activity: Light activity Follow Up/Referral: Dr. Flood in 2 weeks Medications: See [facility] Discharge Statement: "Patient was advised to return to the ER or call 911 if any headaches, dizziness, shortness of breath, chest pain, abdominal pain, bleeding, fevers, or worsening of medical condition. Patient was counseled about treatment plan, medications, possible side effects, patientverbalized understanding. All questions were answered to the best of my ability. This discharge took greater then 30 minutes in planning, reviewing documentation, counseling the patient, and discussing with other team members." ASSESSMENT ASSESSMENT Assessment same Date of Service: Apr 04, 2024 Billing Provider: MONTSE SORENSEN MD Common Visit Codes: [id number]/[id number] DISCH DAY >30min MONTSE SORENSEN MD Apr 04, 2024 15:14
[2024-04-04 15:26] VITALS: TEMP 37.1
== END 2024-04-04 16:15 | disposition home or self-care (01) | DRG 502 ==
LOC: ER 10:32 → OVERFLOW 16:33 → WEST WING 04-03 15:10
PROVIDERS: ADMIT Registered Nurse General Practice; ATTEND Internal Medicine
PROC: 0LQM0ZZ Repair Left Upper Leg Tendon, Open Approach (ICD-10-PCS; principal; 2024-04-03 11:37)
DX: S76.112A Strain of left quadriceps muscle, fascia and tendon, initial encounter (principal); K21.9 Gastro-esophageal reflux disease without esophagitis; R73.9 Hyperglycemia, unspecified; M10.9 Gout, unspecified; F17.210 Nicotine dependence, cigarettes, uncomplicated; M17.12 Unilateral primary osteoarthritis, left knee; Z88.5 Allergy status to narcotic agent; Z88.6 Allergy status to analgesic agent; X58.XXXA Exposure to other specified factors, initial encounter; Y93.89 Activity, other specified; Y92.89 Other specified places as the place of occurrence of the external cause; Y99.8 Other external cause status
CPT/HCPCS: 36415; 71045; 73562; 80048; 80053; 82962; 83036; 84484; 85014; 85018; 85025; 85379; 93005; 93970; 97163; G0378; J0131; J1100; J1815; J1885; J2405; J2704

== ENCOUNTER → 2024-04-13 | Outpatient (CLI) | payer BC ==
[~2024-04-13] MED LIST: ALLO300T2 PO; CEPH250C PO; HYDR-4798 PO
[2024-04-13 10:16] LABS: Basophils # (auto) 0 10 ^3/uL (0-0.2); Basophils % (auto) 0.4 % (0.0-2.0); Eosinophils # (auto) 0.2 10 ^3/uL (0-0.8); Eosinophils % (auto) 2.9 % (0.0-7.0); Hematocrit 46.3 % (41.0-53.0); Hemoglobin 16.2 g/dL (13.5-17.5); Lymphocytes # (auto) 1.8 10 ^3/uL (0.4-5.4); Mean Corpuscular Hemoglobin 30.8 pg (28.0-32.0); Mean Corpuscular Hgb Conc. 34.9 g/dL (32.0-36.0); Mean Corpuscular Volume 88.4 fL (80.0-100.0); Monocytes # (auto) 0.8 10 ^3/uL (0-1.3); Monocytes % (auto) 8.9 % (0.0-12.0); Neutrophils # (auto) 5.8 10 ^3/uL (1.6-8.6); Neutrophils % (auto) 66.8 % (37.0-80.0); Nucleated Red Blood Cells % 0.1 %; Platelet Count (auto) 402 10^3/uL (140-450); Red Blood Cells 5.24 10^6/uL (4.5-5.90); White Blood Cell 8.6 10^3/uL (4.4-10.8)
[2024-04-13 10:25] LABS: Albumin 4.6 g/dL (3.2-4.8); Bilirubin, Direct 0.2 mg/dL (<0.3); Bilirubin, Total 0.6 mg/dL (0.2-1.0)
== END | disposition home or self-care (01) ==
LOC: LAB 09:31
PROVIDERS: ATTEND Urology
DX: E29.1 Testicular hypofunction (principal)
CPT/HCPCS: 36415; 80076; 84153; 84403; 85025

== ENCOUNTER → 2024-06-23 | Outpatient (CLI) | payer BC ==
[2024-06-23 08:58] LABS: Urine Bacteria None Seen /hpf (None Seen)
[2024-06-23 09:03] LABS: Eosinophils # (auto) 0.2 10 ^3/uL (0-0.8); Hemoglobin 18.2 g/dL (13.5-17.5); Monocytes # (auto) 0.6 10 ^3/uL (0-1.3); White Blood Cell 8.8 10^3/uL (4.4-10.8)
[2024-06-23 09:05] LABS: Basophils # (auto) 0 10 ^3/uL (0-0.2); Basophils % (auto) 0.4 % (0.0-2.0); Eosinophils % (auto) 1.9 % (0.0-7.0); Hematocrit 52.5 % (41.0-53.0); Lymphocytes # (auto) 1.9 10 ^3/uL (0.4-5.4); Lymphocytes % (auto) 22.1 % (10.0-50.0); Mean Corpuscular Hemoglobin 30.3 pg (28.0-32.0); Mean Corpuscular Hgb Conc. 34.6 g/dL (32.0-36.0); Mean Corpuscular Volume 87.7 fL (80.0-100.0); Monocytes % (auto) 7.3 % (0.0-12.0); Neutrophils % (auto) 68.3 % (37.0-80.0); Nucleated Red Blood Cells % 0.4 %; Platelet Count (auto) 347 10^3/uL (140-450); Red Blood Cells 5.99 10^6/uL (4.5-5.90); Red Cell Distribution Width 14.1 % (11.8-14.3)
[2024-06-23 10:49] LABS: Urine Blood Negative /uL (Negative); Urine Clarity Clear (Clear); Urine Color Yellow (Yellow); Urine Protein, UAD TRACE (Negative); Urine Specific Gravity 1.016 (1.001-1.035); Urine Squamous Epithelial Cell FEW /hpf (<5); Urine Urobilinogen Normal (Negative); Urine WBC 2 /HPF (0-3); Urine pH 5.5 (5.0-9.0)
[2024-06-23 11:12] LABS: Alkaline Phosphatase 88 U/L (46-116); Anion Gap 10 (5-15); Aspartate Aminotransferase 31 U/L (13-40); BUN/Creatinine Ratio 11.3 (10.0-20.0); Bilirubin, Total 0.8 mg/dL (0.2-1.0); Blood Urea Nitrogen 14 mg/dL (9-23); Carbon Dioxide 27 mmol/L (20-31); Chloride 101 mmol/L (98-107); Potassium 4.3 mmol/L (3.5-5.1); Sodium 138 mmol/L (136-145); Total Protein 7.6 g/dL (5.7-8.2); Uric Acid 6.2 mg/dL (3.7-9.2)
[2024-06-23 11:38] LABS: Alanine Aminotransferase 55 U/L (7-40); Albumin 4.9 g/dL (3.2-4.8); Calcium 10.5 mg/dL (8.7-10.4)
[2024-06-23 11:42] LABS: Glucose 120 mg/dL (74-106)
[2024-06-23 12:07] LABS: Cholesterol 255 mg/dL (< 200); HDL Cholesterol 38 mg/dL (40-59); Triglycerides 254 mg/dL (< 150)
[2024-06-23 12:08] LABS: LDL Cholesterol 183 mg/dL (< 100)
== END | disposition home or self-care (01) ==
LOC: LAB 08:39
PROVIDERS: ATTEND Internal Medicine
DX: Z00.01 Encounter for general adult medical examination with abnormal findings (principal); Z29.9 Encounter for prophylactic measures, unspecified; I12.9 Hypertensive chronic kidney disease with stage 1 through stage 4 chronic kidney disease, or unspecified chronic kidney disease; N18.9 Chronic kidney disease, unspecified; E78.2 Mixed hyperlipidemia; R73.01 Impaired fasting glucose
CPT/HCPCS: 36415; 80053; 80061; 81001; 83036; 84439; 84443; 84550; 85025

== ENCOUNTER → 2024-10-06 | Outpatient (CLI) | payer BC ==
[2024-10-06 14:08] LABS: Basophils # (auto) 0 10 ^3/uL (0-0.2); Basophils % (auto) 0.5 % (0.0-2.0); Eosinophils # (auto) 0.1 10 ^3/uL (0-0.8); Eosinophils % (auto) 1.6 % (0.0-7.0); Hematocrit 46.1 % (41.0-53.0); Hemoglobin 16.1 g/dL (13.5-17.5); Lymphocytes # (auto) 1.9 10 ^3/uL (0.4-5.4); Lymphocytes % (auto) 21.9 % (10.0-50.0); Mean Corpuscular Hgb Conc. 34.8 g/dL (32.0-36.0); Mean Corpuscular Volume 86.2 fL (80.0-100.0); Monocytes # (auto) 0.5 10 ^3/uL (0-1.3); Neutrophils # (auto) 6.1 10 ^3/uL (1.6-8.6); Platelet Count (auto) 351 10^3/uL (140-450); Red Blood Cells 5.35 10^6/uL (4.5-5.90); Red Cell Distribution Width 14.8 % (11.8-14.3); White Blood Cell 8.7 10^3/uL (4.4-10.8)
[2024-10-06 14:30] LABS: Bilirubin, Direct 0.2 mg/dL (<0.3); Bilirubin, Total 0.7 mg/dL (0.2-1.0); Total Protein 7.2 g/dL (5.7-8.2)
== END | disposition home or self-care (01) ==
LOC: LAB 13:51
PROVIDERS: ATTEND Urology
DX: E29.1 Testicular hypofunction (principal); Z79.899 Other long term (current) drug therapy
CPT/HCPCS: 36415; 80076; 84153; 84403; 85025

== ENCOUNTER → 2024-10-07 | Outpatient (CLI) | payer BC ==
[2024-10-07 12:00] LABS: Alanine Aminotransferase 55 U/L (7-40); Albumin 4.8 g/dL (3.2-4.8); Alkaline Phosphatase 68 U/L (46-116); Anion Gap 8 (5-15); Aspartate Aminotransferase 32 U/L (13-40); BUN/Creatinine Ratio 13.6 (10.0-20.0); Bilirubin, Total 0.8 mg/dL (0.2-1.0); Blood Urea Nitrogen 16 mg/dL (9-23); Calcium 9.7 mg/dL (8.7-10.4); Carbon Dioxide 26 mmol/L (20-31); Chloride 105 mmol/L (98-107); Cholesterol 195 mg/dL (< 200); Glucose 112 mg/dL (74-106); HDL Cholesterol 34 mg/dL (40-59); LDL Cholesterol 136 mg/dL (< 100); Sodium 139 mmol/L (136-145); Total Protein 6.9 g/dL (5.7-8.2); Triglycerides 172 mg/dL (< 150)
[2024-10-07 12:43] LABS: Creatinine, Urine 56.25 mg/dL (30.0-125.0)
== END | disposition home or self-care (01) ==
LOC: LAB 11:32
PROVIDERS: ATTEND Internal Medicine
DX: I12.9 Hypertensive chronic kidney disease with stage 1 through stage 4 chronic kidney disease, or unspecified chronic kidney disease (principal); N18.2 Chronic kidney disease, stage 2 (mild); E78.2 Mixed hyperlipidemia
CPT/HCPCS: 36415; 80053; 80061; 82043; 82570

== ENCOUNTER 2025-02-10 08:12 | Outpatient (CLI) | payer BC ==
[2025-02-10 08:36] LABS: Hematocrit 47.3 % (41.0-53.0); Hemoglobin 16.4 g/dL (13.5-17.5); Mean Corpuscular Hemoglobin 30.1 pg (28.0-32.0); Mean Corpuscular Volume 87.3 fL (80.0-100.0); Nucleated Red Blood Cells % 0.3 %
[2025-02-10 08:38] LABS: Urine Protein, UAD Negative (Negative)
[2025-02-10 08:52] LABS: Alanine Aminotransferase 32 U/L (7-40); Albumin 4.4 g/dL (3.2-4.8); Alkaline Phosphatase 78 U/L (46-116); Anion Gap 9 (5-15); BUN/Creatinine Ratio 13.0 (10.0-20.0); Blood Urea Nitrogen 15 mg/dL (9-23); Calcium 9.1 mg/dL (8.7-10.4); Carbon Dioxide 27 mmol/L (20-31); Chloride 104 mmol/L (98-107); Potassium 4.2 mmol/L (3.5-5.1); Sodium 140 mmol/L (136-145); Total Protein 6.9 g/dL (5.7-8.2); Triglycerides 135 mg/dL (< 150)
[2025-02-10 08:53] LABS: Bilirubin, Total 1.0 mg/dL (0.2-1.0); Cholesterol 188 mg/dL (< 200); HDL Cholesterol 45 mg/dL (40-59)
[2025-02-10 08:58] LABS: Glucose 128 mg/dL (74-106)
[2025-02-10 10:06] LABS: Uric Acid 8.6 mg/dL (3.7-9.2)
== END 2025-02-10 17:00 | disposition home or self-care (01) ==
LOC: LAB 08:12
PROVIDERS: ATTEND Internal Medicine
DX: I12.9 Hypertensive chronic kidney disease with stage 1 through stage 4 chronic kidney disease, or unspecified chronic kidney disease (principal); N18.2 Chronic kidney disease, stage 2 (mild); E78.5 Hyperlipidemia, unspecified; M10.9 Gout, unspecified; Z00.01 Encounter for general adult medical examination with abnormal findings
CPT/HCPCS: 36415; 80053; 80061; 81001; 83036; 84439; 84443; 84550; 85025

== ENCOUNTER 2025-04-06 11:06 | Outpatient (CLI) | payer BC ==
[2025-04-06 11:25] LABS: Hematocrit 45.4 % (41.0-53.0); Hemoglobin 15.8 g/dL (13.5-17.5); Mean Corpuscular Hemoglobin 29.9 pg (28.0-32.0); Mean Corpuscular Volume 85.9 fL (80.0-100.0); Nucleated Red Blood Cells % 0.1 %
[2025-04-06 11:56] LABS: Albumin 4.7 g/dL (3.2-4.8); Alkaline Phosphatase 84.0 U/L (46-116); Total Protein 7.3 g/dL (5.7-8.2)
[2025-04-06 11:57] LABS: Alanine Aminotransferase 60.0 U/L (7-40); Bilirubin, Direct 0.2 mg/dL (<0.3); Bilirubin, Total 0.7 mg/dL (0.2-1.0)
== END 2025-04-06 17:00 | disposition home or self-care (01) ==
LOC: LAB 11:06
PROVIDERS: ATTEND Urology
DX: E29.1 Testicular hypofunction (principal)
CPT/HCPCS: 36415; 80076; 84153; 84403; 85025